=== PATIENT | male | born 1970 | race Caucasian/White ===

== ENCOUNTER → 2018-05-21 | Outpatient (CLI) | payer BC | LOC: COL.RAD 07:04 | DX: M47.816 Spondylosis without myelopathy or radiculopathy, lumbar region (principal); M48.061 Spinal stenosis, lumbar region without neurogenic claudication ==

== ENCOUNTER → 2018-12-07 | Outpatient (CLI) | payer OTHER | LOC: COL.RAD 07:03 | DX: M51.36 Other intervertebral disc degeneration, lumbar region (principal) ==

== ENCOUNTER → 2019-01-15 | Outpatient (CLI) | payer BC ==
[~2019-01-15] VITALS: Ht 182.9 cm; Wt 107.2 kg
[~2019-01-15] MED LIST: ASPIRIN 81M81 MG/TA2 PO; LIPITOR 80MG80 MG PO; PLAVIX 75MG TAB75 MG PO; PROTONIX 40MG T40 MG PO; TOPROL XL 50MG50 MG PO
[2019-01-15 10:00] VITALS: BP 130/90; PULSE 87
[2019-01-15 11:00] VITALS: BP 138/91; PULSE 84
== END ==
LOC: COL.RAD 01-07 06:30
DX: M51.36 Other intervertebral disc degeneration, lumbar region (principal)
CPT/HCPCS: J3301

== ENCOUNTER → 2019-03-04 | Outpatient (CLI) | payer BC ==
[~2019-03-04] VITALS: Ht 182.9 cm; Wt 102.0 kg
[2019-03-04 13:16] VITALS: BP 128/89; PULSE 76
[2019-03-04 14:22] VITALS: BP 124/85; PULSE 82
== END ==
LOC: COL.RAD 12:45
DX: M54.5 Low back pain (principal)
CPT/HCPCS: J3301

== ENCOUNTER → 2023-04-05 | Outpatient (CLI) | payer OTHER | LOC: DIA.ED 15:24 | DX: E11.9 Type 2 diabetes mellitus without complications (principal); E78.5 Hyperlipidemia, unspecified | CPT/HCPCS: G0108 ==